=== PATIENT | female | born 1990 | race Caucasian/White ===

== ENCOUNTER 2018-06-17 12:38 | Emergency (ER) | payer SELFPAY ==
[~2018-06-17] VITALS: Ht 162.6 cm; Wt 110.2 kg
[2018-06-17 12:54] VITALS: Ht 162.6 cm; Wt 110.2 kg
[2018-06-17 14:51] VITALS: BP 125/88
== END 2018-06-17 14:51 | disposition home or self-care (01) ==
LOC: EDSEX 12:38 → ED 12:38
DX: H60.92 Unspecified otitis externa, left ear (principal)

== ENCOUNTER 2019-04-13 08:39 | Emergency (ER) | payer SELFPAY ==
[~2019-04-13] VITALS: Ht 162.6 cm; Wt 114.3 kg
[2019-04-13 08:46] VITALS: Ht 162.6 cm; Wt 114.3 kg
[2019-04-13 10:27] VITALS: BP 121/84
== END 2019-04-13 10:27 | disposition home or self-care (01) ==
LOC: ED 08:39
DX: H60.8X1 Other otitis externa, right ear (principal); E66.01 Morbid (severe) obesity due to excess calories; Z68.41 Body mass index [BMI] 40.0-44.9, adult
CPT/HCPCS: 82962